=== PATIENT | female | born 1990 | race Two or more races ===

== ENCOUNTER 2021-11-10 12:39 | Emergency (ER) | payer MEDICAID ==
[~2021-11-10] VITALS: Ht 175.3 cm; Wt 86.2 kg
--- NOTE | 2021-11-10 12:52 | NUR ---
PATIENT BIB [facility] 78 HAD A NEAR SYNCOPAL EPISODE AND LOWERED TO THE FLOOR NO TRAUMA. PATIENT PLACED ON MONITOR AND HOSPITAL GOWN. SAFETY PRECAUTIONS IN PLACE. AWAITING TO BE SEEN BY .
--- NOTE | 2021-11-10 12:53 | NUR ---
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
[2021-11-10] MEDS ORDERED: IV NS 0.9% 1,000 ML BAG IV ONE (13:00)
[2021-11-10 13:41] LABS: BASOPHILS % (AUTO) 0.3 % (0.0-2.0); HEMATOCRIT 43 % (33-45); HEMOGLOBIN 14.9 g/dL (11.5-14.8); LYMPHOCYTES # (AUTO) 2.1 K/uL (0.8-4.8); LYMPHOCYTES % (AUTO) 30.1 % (20.0-44.0); MEAN CORPUSCULAR HGB CONC 34 g/dl (31.0-36.0); MEAN CORPUSCULAR VOLUME 85 fL (82-100); MONOCYTES # (AUTO) 0.6 K/uL (0.1-1.30); NEUTROPHILS # (AUTO) 4.1 K/uL (1.8-8.9); NEUTROPHILS % (AUTO) 60.6 % (43.0-81.0); PLATELET COUNT (AUTO) 350 K/uL (150-450); RED BLOOD CELL COUNT(AUTO) 5.13 MIL/uL (4.0-5.2); WHITE BLOOD COUNT (AUTO) 6.8 K/uL (4.3-11.0)
[2021-11-10 13:49] LABS: CALCIUM, SERUM 9.1 mg/dL (8.5-10.1); CARBON DIOXIDE 29 mmol/L (21-32); CHLORIDE 100 mmol/L (98-107); CREATININE 1.1 mg/dL (0.6-1.3); GLUCOSE 119 mg/dL (74-106); POTASSIUM 2.9 mmol/L (3.5-5.1); SODIUM SERUM 140 mmol/L (136-145); UREA NITROGEN, BLOOD 11 mg/dL (7-18)
[2021-11-10] MEDS ORDERED: POTASSIUM CHLORIDE 20 MEQ TAB.PRT.SR PO ONE ×2 (14:30→14:51)
[2021-11-10 16:46] VITALS: BP 154/70
== END 2021-11-10 16:47 | disposition home or self-care (01) ==
LOC: ER 12:43
DX: R55 Syncope and collapse (principal); E87.6 Hypokalemia; R11.10 Vomiting, unspecified; R94.31 Abnormal electrocardiogram [ECG] [EKG]; U07.1 COVID-19
CPT/HCPCS: 36415; 80048; 83735; 84484 ×2; 84703; 85025; 87426; 93005; 96360; 99285; C9803; J7030